=== PATIENT | female | born 1980 | race Caucasian/White ===

== ENCOUNTER 2017-02-09 11:41 | Inpatient (IN) | payer MEDICAID, OTHER ==
[~2017-02-09] VITALS: Ht 172.7 cm; Wt 137.0 kg
[2017-02-09] MEDS ORDERED: IV NORMAL SALINE 1000 ML BAG IV ONE (12:45)
--- NOTE | 2017-02-09 12:49 | NUR ---
PT IS IN ROOM #2B. DR ADAMS EVALUATED THE PT.
[2017-02-09 13:17] LABS: BASOPHILS # (AUTO) 0.1 K/uL (0.0-8.0); BASOPHILS % (AUTO) 0.5 % (0.0-2.0); EOSINOPHILS # (AUTO) 0.2 K/uL (0.0-0.7); EOSINOPHILS % (AUTO) 1.9 % (0.0-7.0); HEMATOCRIT 39.9 % (37-47); HEMOGLOBIN 12.9 G/DL (12.0-16.0); LYMPHOCYTES # (AUTO) 1.6 K/UL (0.8-4.8); LYMPHOCYTES % (AUTO) 13.1 % (20.5-51.5); MEAN CORPUSCULAR HEMOGLOBIN 24.9 UUG (27.0-31.0); MEAN CORPUSCULAR HGB CONC 32 g/dL (32.0-37.0); MEAN CORPUSCULAR VOLUME 77.4 FL (81.0-99.0); MONOCYTES # (AUTO) 0.4 K/UL (0.1-1.30); MONOCYTES % (AUTO) 3.5 % (0.0-11.0); NEUTROPHILS # (AUTO) 10.2 K/UL (1.8-8.9); PLATELET COUNT (AUTO) 274 K/UL (150-450); RED BLOOD CELL COUNT(AUTO) 5.15 MIL/UL (4.2-5.4); WHITE BLOOD COUNT (AUTO) 12.5 K/UL (4.0-11.2)
[2017-02-09 13:35] LABS: CREATININE 0.6 mg/dL (0.6-1.3); POTASSIUM 4.1 mmol/L (3.5-5.1)
[2017-02-09] MEDS ORDERED: IOHEXOL 300MG/ML 100 ML INFUS..BTL ONE (13:35)
[2017-02-09] MEDS ORDERED: IV NORMAL SALINE 250 ML IV ONE (13:35)
[2017-02-09 13:48] LABS: BILIRUBIN,DIRECT 0.3 mg/dL (0.0-0.2); BILIRUBIN,TOTAL 0.6 mg/dL (0.2-1.0)
[2017-02-09] MEDS ORDERED: PANTOPRAZOLE SODIUM 40 MG VIAL IV ONE (14:45)
[2017-02-09] MEDS ORDERED: PANTOPRAZOLE SODIUM 40 MG VIAL ONE (15:10)
[2017-02-09] MEDS ORDERED: MORPHINE SULFATE 4 MG/1 ML DISP.SYRIN IV ONE (15:30)
[2017-02-09] MEDS ORDERED: ONDANSETRON 4 MG/2 ML VIAL IV ONE (15:30)
[2017-02-09] MEDS ORDERED: ONDANSETRON 4 MG/2 ML VIAL ONE (15:41)
[2017-02-09] MEDS ORDERED: MORPHINE SULFATE 4 MG/1 ML DISP.SYRIN ONE (15:41)
[2017-02-09] MEDS ORDERED: MAG HYDROX/AL HYDROX/SIMETH 30 ML LIQUID UDC PO ONE (15:45)
[2017-02-09] MEDS ORDERED: ASPIRIN 325 MG TABLET PO ONE (15:45)
[2017-02-09] MEDS ORDERED: MAG HYDROX/AL HYDROX/SIMETH 30 ML LIQUID UDC ONE (16:10)
[2017-02-09] MEDS ORDERED: ASPIRIN 325 MG TABLET ONE (16:10)
--- NOTE | 2017-02-09 18:16 | NUR ---
PT WAS TRANSFERED TO TLEMETRY ROOM #204. REPORT WAS GIVEN TO [employer].
[2017-02-09 18:40] VITALS: BP 116/73
--- NOTE | 2017-02-09 18:40 | NUR ---
ADMITTED VIA [facility]. ORIENTED TO SURROUNDINGS. DENIES CHEST PAIN OR SOB AT THIS TIME.
[2017-02-09] MEDS ORDERED: ONDANSETRON 4 MG/2 ML VIAL IV PRN (19:00)
[2017-02-09] MEDS ORDERED: MAGNESIUM HYDROXIDE 30 ML LIQUID UDC PO PRN (19:00)
[2017-02-09] MEDS ORDERED: MORPHINE SULFATE 2 MG/1 ML DISP.SYRIN IV PRN (19:00)
[2017-02-09] MEDS ORDERED: ZOLPIDEM 5 MG TABLET PO PRN (19:00)
[2017-02-09] MEDS ORDERED: NITROGLYCERIN 0.3 MG/TAB BOTTLE SL PRN (19:00)
[2017-02-09] MEDS ORDERED: ACETAMINOPHEN 325 MG TABLET PO PRN (19:00)
--- NOTE | 2017-02-09 20:00 | NUR ---
RECEIVED PATIENT AWAKE IN BED. A/O X4. DENIES CHEST PAIN AT THIS TIME AND ALSO DENIES ANY OTHER DISCOMFORT. VSS. ON TELE SR. HEPLOCK INTACT AND PATENT, NOTED TO LEFT FA #20 GAUGE. CALL LIGHT IN REACH. ALL NEEDS ATTENDED. WILL CONTINUE TO MONITOR.
[2017-02-09 20:59] VITALS: BP 113/65
--- NOTE | 2017-02-09 22:00 | NUR ---
PATIENT AWAKE IN BED. DENIES CHEST PAIN. ON TELE SR. PATIENT TEACHING GIVEN TO PATIENT. VERBALIZED UNDERSTANDING. ALL NEEDS ATTENDED. LEONEL LIGHT IN REACH.
[2017-02-10 00:37] VITALS: BP 112/58
[2017-02-10 05:41] VITALS: BP 110/66
--- NOTE | 2017-02-10 06:44 | NUR ---
PATIENT AWAKE IN BED. DENIES ANY CHEST PAIN OR DISCOMFORT. VSS. ON TELE SR. CALL LIGHT IN REACH. ALL NEEDS ATTENDED. WILL CONTINUE TO MONITOR.
[2017-02-10] MEDS ORDERED: PANTOPRAZOLE SODIUM 40 MG TABLET.DR PO SCH (07:00)
[2017-02-10 07:12] LABS: BASOPHILS % (AUTO) 0.5 % (0.0-2.0); EOSINOPHILS # (AUTO) 0.3 K/uL (0.0-0.7); HEMATOCRIT 37.6 % (37-47); HEMOGLOBIN 12.4 G/DL (12.0-16.0); LYMPHOCYTES # (AUTO) 1.7 K/UL (0.8-4.8); MEAN CORPUSCULAR HEMOGLOBIN 25.4 UUG (27.0-31.0); MEAN CORPUSCULAR HGB CONC 33 g/dL (32.0-37.0); MEAN CORPUSCULAR VOLUME 77.2 FL (81.0-99.0); MONOCYTES # (AUTO) 0.4 K/UL (0.1-1.30); MONOCYTES % (AUTO) 4.9 % (0.0-11.0); NEUTROPHILS # (AUTO) 4.8 K/UL (1.8-8.9); NEUTROPHILS % (AUTO) 67.6 % (38.5-71.5); PLATELET COUNT (AUTO) 240 K/UL (150-450); RED BLOOD CELL COUNT(AUTO) 4.87 MIL/UL (4.2-5.4)
[2017-02-10 07:19] LABS: WHITE BLOOD COUNT (AUTO) 7.2 K/UL (4.0-11.2)
[2017-02-10 07:21] LABS: THYROID STIMULATING HORMONE 3.934 mIU/mL (0.358-3.740)
[2017-02-10 07:59] LABS: BILIRUBIN,TOTAL 0.4 mg/dL (0.2-1.0); CREATININE 0.6 mg/dL (0.6-1.3); MAGNESIUM 2.2 mg/dL (1.8-2.4); PHOSPHOROUS 4.3 mg/dL (2.5-4.9); POTASSIUM 4.3 mmol/L (3.5-5.1); TOTAL PROTEIN, SERUM 6.7 g/dL (6.4-8.2)
[2017-02-10] MEDS ORDERED: ASPIRIN 81 MG TAB.CHEW PO SCH (09:00)
[2017-02-10] MEDS ORDERED: DEXTROSE 50% 50 ML DISP.SYRIN IV PRN (10:30)
[2017-02-10] MEDS ORDERED: INSULIN REGULAR, HUMAN 300 UNIT/3 ML VIAL SQ PRN (10:30)
[2017-02-10] MEDS: BLOOD SUGAR DIAGNOSTIC 1 EACH STRIP VI SCH ×2 (11:29→16:53)
[2017-02-10 12:00] VITALS: BP 109/60
--- NOTE | 2017-02-10 15:12 | NUR ---
PATIENT BEEN IN BED AWAKE WATCHING TV DURING THE DAY. NO S/S OF DISTRESS NOTED. SERVICES TECH JOSEPH DISCHARGE HER HOME. WAITING FOR ULTRASOUND TO BE DONE TO R/O ANY LIVER PROBLEMS. PROCEDURE WILL BE DONE AT 1800. IV STILL INTACT. NO S/S OF EPIGASTRIC PAIN. NO SYMPTOMS OF N/V. MONITOR STILL IN PLACE NORMAL SR. BS HAVE BEEN CONTROL. SAFETY AND COMFORT PROVIDED DURING THE DAY. WILL CONTINUE MONITORING.
[2017-02-10 16:00] VITALS: BP 109/64
--- NOTE | 2017-02-10 18:22 | NUR ---
PATIENT IN BED NOW WATCHING TV. CALLED ULTRASOUND TO FOLLOW UP, THE WILL BE COMING SOON. WAITING FOR MEDICAL DIAGNOSTIC RADIOGRAPHER TO CLEAR PATIENT UP. NO S/S OF DISTRESS NOTED AT THE MOMENT. DENIED PAIN. WILL CONTINUE MONITORING.
--- NOTE | 2017-02-10 19:45 | NUR ---
TECH AT BEDSIDE TO PERFORM ULTRA SOUND.
[2017-02-10 20:02] LABS: *BILIRUBIN,URIN NEGATIVE (NEGATIVE); *BLOOD, URINE 1+ (NEGATIVE); *CLARITY,URINE CLEAR (CLEAR); *COLOR,URINE YELLOW (YELLOW); *KETONES,URINE NEGATIVE (NEGATIVE); *PROTEIN,URINE NEGATIVE (NEGATIVE); *UROBILINOGEN,URINE 0.2 E.U./dl (NORMAL); LEUKOCYTE ESTERASE ,URINE NEGATIVE (NEGATIVE); NITRITE, URINE NEGATIVE (NEGATIVE); PH,URINE 6.5 (5.0-8.0); UGLUCOSE NEGATIVE (NEGATIVE)
[2017-02-10 20:08] LABS: BACTERIA,URINE FEW /HPF (NONE SEEN); RBC,URINE NONE SEEN /HPF (0-3); SQUAMOUS EPITHELIAL CELL,UR MODERATE /HPF (NONE SEEN)
--- NOTE | 2017-02-10 20:15 | NUR ---
PATIENT AWAKE IN BED WAITING TO BE DISCHARGED. VSS. DENIES CHEST PAIN OR ANY OTHER DISCOMFORT. CALL LIGHT IN REACH.
[2017-02-10 20:21] VITALS: BP 132/80
--- NOTE | 2017-02-10 20:30 | NUR ---
PATIENT GIVEN DISCHARGED INSTRUCTIONS. VERBALIZED UNDERSTANDING. VSS. H/L REMOVED. DENIES PAIN. DISCHARGED FROM HOSPITAL IN STABLE CONDITION. ALL NEEDS ATTENDED.
== END 2017-02-10 20:30 | disposition home or self-care (01) | DRG 203 ==
LOC: ER 11:42 → TELE 18:08
PROVIDERS: ADMIT Internal Medicine; ATTEND Internal Medicine
DX: M94.0 Chondrocostal junction syndrome [Tietze] (principal); E43 Unspecified severe protein-calorie malnutrition; Z68.42 Body mass index [BMI] 45.0-49.9, adult; E11.65 Type 2 diabetes mellitus with hyperglycemia; R17 Unspecified jaundice; E66.01 Morbid (severe) obesity due to excess calories; I08.1 Rheumatic disorders of both mitral and tricuspid valves; G89.29 Other chronic pain; D72.829 Elevated white blood cell count, unspecified; M54.9 Dorsalgia, unspecified; R74.0 Nonspecific elevation of levels of transaminase and lactic acid dehydrogenase [LDH]; Z86.32 Personal history of gestational diabetes; R94.8 Abnormal results of function studies of other organs and systems
CPT/HCPCS: 36415; 70030-TC; 71010; 71275; 76705; 83550; 83690; 83735; 84100; 84443; 84703; 85025; 85730; 86850; 86900; 86901; 87086; 93005; 93307; A4663; C9113; J1815; J2270; J2405; J7030; J7050; Q9967

== ENCOUNTER 2017-06-11 09:13 | Emergency (ER) | payer MEDICAID, OTHER ==
[~2017-06-11] VITALS: Ht 172.7 cm; Wt 124.7 kg
--- NOTE | 2017-06-11 09:38 | NUR ---
Throat swab collected and sent to lab.
--- NOTE | 2017-06-11 10:36 | NUR ---
Patient discharged to home in stable conditon. Written and verbal after care instructions given. Patient verbalizes understanding of instructions.
[2017-06-11 10:37] VITALS: BP 156/86
== END 2017-06-11 10:37 | disposition home or self-care (01) ==
LOC: ER 09:13
DX: J02.8 Acute pharyngitis due to other specified organisms (principal); B97.89 Other viral agents as the cause of diseases classified elsewhere; F17.200 Nicotine dependence, unspecified, uncomplicated; Z88.0 Allergy status to penicillin
CPT/HCPCS: 36415; 86403; 87070; A4663

== ENCOUNTER 2024-09-11 08:00 | Emergency (ER) | payer MEDICAID ==
[~2024-09-11] VITALS: Ht 172.7 cm; Wt 92.5 kg
[2024-09-11 08:53] LABS: BASOPHILS # (AUTO) 0.1 K/UL (0.0-0.2); EOSINOPHILS # (AUTO) 0.1 K/uL (0.0-0.7); EOSINOPHILS % (AUTO) 2.2 % (0.0-7.0); HEMATOCRIT 26.5 % (31.2-41.9); LYMPHOCYTES # (AUTO) 1.6 K/uL (0.8-4.8); LYMPHOCYTES % (AUTO) 30.5 % (20.5-51.5); MEAN CORPUSCULAR HEMOGLOBIN 17.4 uug (24.7-32.8); MEAN CORPUSCULAR HGB CONC 30 g/dL (32.3-35.6); MONOCYTES # (AUTO) 0.3 K/uL (0.1-1.30); MONOCYTES % (AUTO) 6.1 % (0.0-11.0); NEUTROPHILS # (AUTO) 3.2 K/uL (1.8-8.9); NEUTROPHILS % (AUTO) 60.2 % (38.5-71.5); PLATELET COUNT (AUTO) 292 K/uL (179-408); RED BLOOD CELL COUNT(AUTO) 4.57 MIL/uL (3.63-4.92); RED CELL DISTRIBUTION WIDTH 19.1 % (12.3-17.7); WHITE BLOOD COUNT (AUTO) 5.3 K/uL (3.8-11.8)
[2024-09-11 08:59] LABS: DIFFERENTIAL COMMENT 1
[2024-09-11 09:02] LABS: CALCIUM 8.3 mg/dL (8.5-10.1); CARBON DIOXIDE 26 mmol/L (21-32); CHLORIDE 104 mmol/L (98-107); CREATININE 0.5 mg/dL (0.6-1.3); GLUCOSE 95 mg/dL (74-106); POTASSIUM 3.5 mmol/L (3.5-5.1); SODIUM SERUM 140 mmol/L (136-145); UREA NITROGEN, BLOOD 12 mg/dL (7-18)
[2024-09-11 09:08] LABS: ALANINE AMINOTRANSFERASE 23 U/L (14-59); ALBUMIN 3.8 g/dL (3.4-5.0); ALKALINE PHOSPHATASE 58 U/L (50-136); ASPARTATE AMINOTRANSFERASE 9 U/L (15-37); BILIRUBIN,DIRECT 0.1 mg/dL (0.0-0.2); BILIRUBIN,TOTAL 0.4 mg/dL (0.2-1.0); TOTAL PROTEIN, SERUM 7.6 g/dL (6.4-8.2)
[2024-09-11 09:32] LABS: MAGNESIUM 2.3 mg/dL (1.8-2.4)
[2024-09-11] MEDS ORDERED: CYANOCOBALAMIN 1000 MCG/ML VIAL ONE (11:34)
[2024-09-11] MEDS: CYANOCOBALAMIN 1000 MCG/ML VIAL IM ONE (11:38)
[2024-09-11] MEDS: NORMAL SALINE IV ONE (12:33)
[2024-09-11] MEDS: SUCROSE IV ONE (12:33)
[2024-09-11] MEDS: SOD FERRIC GLUC COMPLX IV ONE (12:33)
[2024-09-11 14:27] VITALS: O2SAT 100
[2024-09-11] MEDS ORDERED: SYRI-29 MC (14:45)
[2024-09-11] MEDS ORDERED: FERR325T23 PO (14:45)
[2024-09-11] MEDS ORDERED: CYAN10006 IM (14:45)
== END 2024-09-11 15:01 | disposition home or self-care (01) ==
LOC: ER 08:00
DX: D50.9 Iron deficiency anemia, unspecified (principal); E53.8 Deficiency of other specified B group vitamins; E83.51 Hypocalcemia; E11.9 Type 2 diabetes mellitus without complications; F17.200 Nicotine dependence, unspecified, uncomplicated; G89.29 Other chronic pain; Z98.84 Bariatric surgery status; Z88.0 Allergy status to penicillin; Z88.7 Allergy status to serum and vaccine
CPT/HCPCS: 99284; 96365; 96366; 80076; 80048; 82607; 83550; 83735; 85025; 36415; 96372; 82525; 84630; J3420; J2916; 70030-TC; A4606; A4663